=== PATIENT | male | born 1970 | race Caucasian/White ===

== ENCOUNTER → 2019-01-31 12:11 | Outpatient (CLI) | payer BC, SELFPAY ==
[2019-01-31 13:53] LABS: PSA,Total - Annual Screen 0.38 ng/mL (0.00-4.00)
[2019-02-02 20:07] LABS: Testosterone, Free 7.97 ng/dL (5.00-21.00)
[2019-02-03 07:42] LABS: Testosterone, % Free 3.35 % (1.50-4.20); Testosterone, Total 238 ng/dL (264-916)
== END ==
PROVIDERS: Family Provider Family Medicine; PCP Family Medicine; Referring Provider Family Medicine; Visit Provider Family Medicine
DX: Z51.81 Encounter for therapeutic drug level monitoring (principal); Z79.899 Other long term (current) drug therapy
CPT/HCPCS: 36415; 84153; 84402; 84403; G0103